=== PATIENT | male | born 1950 | race Two or more races ===

== ENCOUNTER 2016-06-29 13:50 | Inpatient (IN) ==
[2016-06-29] MEDS ORDERED: ONDANSETRON 4 MG/2 ML VIAL IV PRN (13:57)
[2016-06-29] MEDS ORDERED: ACETAMINOPHEN 325 MG TABLET PO PRN (13:57)
--- NOTE | 2016-06-29 15:38 | EKG Report ---
Stationary ECG Study [facility] Test Date: 06/29/2016 3:37:34 PM Pat Name: KANG CARTER Department: Room: 275 Gender: M Girls Swimming Coach: ANNAMARIE : 1950 Requested by: Tima Case Order Number: [id number] Reading MD: LEROY LEO Intervals [place] Rate: 82 P: 78 AR: 132 QRS: 71 QRSD: 100 T: 47 QT: 399 QTc: 438 Interpretive Statements SINUS RHYTHM at 82 bpm LVH with left ventricular overload pattern Electronically Signed On 06-30-16 15:31:41 CDT by LEROY LEO [email or web address]
--- NOTE | 2016-06-29 16:07 | Orthopedic Consult Note ---
History of Present Illness Chief complaint: Left knee pain History of present illness: Mr. Gayle is a 66 year old male with a recent history of septic arthritis of the left knee which was treated in [place]. Upon returning to the [facility], he has been treated with vancomycin 3 times weekly after dialysis. Over the last couple days he developed increased pain and decreased range of motion in the left knee. He denies any constitutional symptoms. By report, he was being treated for MSSA knee infection. Home Medications Medication Instructions Recorded Confirmed Type Allopurinol 100 mg PO DAILY 05/30/15 06/29/16 History Amlodipine Besylate 10 mg PO BEDTIME 05/30/15 06/29/16 History Famotidine 20 mg PO DAILY 05/30/15 06/29/16 History levETIRAcetam [Levetiracetam] 500 mg PO DAILY 05/30/15 06/29/16 History Alum/Mag/Simeth Max Str Liquid 30 ml PO Q6H PRN #0 udcup 06/11/15 06/29/16 Rx [Mylanta Max Strength Liquid] hydrALAZINE TAB [Apresoline Tab] 100 mg PO TID #90 tablet 06/11/15 06/29/16 Rx guaiFENesin ER TAB [Mucinex] 600 mg PO BID tablet 08/14/15 06/29/16 Rx Acetaminophen Tab [Tylenol Tab] 650 mg PO Q6H PRN #0 tablet 09/24/15 06/29/16 Rx Nebivolol [Bystolic] 10 mg PO DAILY #30 tablet 09/24/15 06/29/16 Rx cloNIDine TAB [Catapres Tab] 0.2 mg PO TID #90 tablet 09/24/15 06/29/16 Rx Allergies Allergy/AdvReac Type Severity Reaction Status Date / Time Penicillins Allergy Severe RASH Verified 08/10/15 15:18 Sulfa (Sulfonamide Allergy Unknown RASH Verified 08/10/15 15:18 Antibiotics) 12 point system: reviewed and no additional remarkable complaints except as stated Medical,Surgical,& Family Hx - Medical History Cardio: History of: CHF (the patient has a history of heart failure with preserved ejection fraction), Hypertension Neurology: History of: TIA (2012) No history of: Seizures Respiratory: History of: Intubation Renal: History of: Dialysis (T/R/S), Renal Problems (dr guzmán, nephrology) - Surgical History Cardiac Surgeries: Sugical HX of: Cardiac Catheterization (no epicardial stenosis in May 2015 mildly elevated LVEDP) - Family History Family History: Reports;: Family Heart Disease, Family Hypertension - Social History Smoking Status: Never smoker Frequency of Alcohol Use: None Type of Drug Use: None Exam - Constitutional Vitals: Period Temp Pulse Resp BP Sys/Miller Pulse Ox Last 24 Hr 98.9 F 81 18 184/70 91 Exam: Examination of the left knee today shows extremely restricted range of motion from 20 to about 70. He has minimal effusion. He has a healed incision on anterior aspect of the knee with some small eschars. There is no warmth. No erythema. He has some edema in the leg below the knee. He has pain with any attempted range of motion. Results - Labs CBC & BMP: 06/29/16 16:29 06/29/16 16:29 - Diagnostic Findings Procedure: X-ray: image reviewed by me (Radiographs of the left knee show degenerative changes and some osteopenia) Assessment and Plan (1) Left knee pain Status: Acute Assessment and plan: Currently he does not appear to have septic arthritis by clinical exam. We performed aspiration at the bedside and got about 10 cc of thin, bloody fluid. I would recommend continue physical therapy and vancomycin at this point. We will follow-up the results tomorrow Patient may need MRI of left knee to see if there is any signs of osteomyelitis need to be treated with antibiotics for a longer length of time. Procedure: Under aseptic conditions superolateral aspect left knee is anesthetized 1% lidocaine. Approximately 10 cc of thin, bloody fluid was aspirated. Patient tolerated the procedure well and had no immediate complications. Current Visit: Yes Qualifiers: Chronicity: chronic Qualified Code(s): M25.562 - Pain in left knee; G89.29 - Other chronic pain
[2016-06-29 17:02] LABS: Basophils # 0.1 10*3/uL (0.0-0.2); Eosinophils % 14.9 % (0.00-10.9); Hematocrit 30.2 VOL% (42.0-52.0); Hemoglobin 9.5 GM/DL (14.0-18.0); Immature Granulocytes % 0.2 %; Immature Granulocytes Absolute 0.03 #; Lymphocytes # 3.4 10*3/uL (1.4-4.0); Lymphocytes % 24.7 % (21.2-54.2); Mean Corpuscular HGB Conc 31.5 GM/DL (32-36); Mean Corpuscular Hemoglobin 27 PG (27-34); Mean Corpuscular Volume 86.8 FL (87-102); Monocytes # 0.7 10*3/uL (0.11-0.8); Monocytes % 5.3 % (1.7-12.7); Neutrophils # 7.4 10*3/uL (1.4-7.4); Neutrophils % 53.9 % (38.7-73.9); Platelet Count 290 T/CUMM (130-400); Red Blood Count 3.48 MC/CUMM (3.8-5.5); Red Cell Distribution Width 17.8 % (9.3-17.3); White Blood Count 13.7 T/CUMM (4-12)
[2016-06-29 17:18] LABS: Albumin 3.3 G/DL (3.4-5.0); Bilirubin,Total 0.5 MG/DL (0.2-1.0); Calcium 8.5 MG/DL (8.5-10.1); Osmolality,Calculated 296.4 MOS/KG (273-304); Potassium 4.8 MMOL/L (3.5-5.1); Total Protein 8.7 G/DL (6.4-8.3)
[2016-06-29] MEDS ORDERED: LIDOCAINE 1% 50 ML VIAL MISC INJ ONE (17:54)
--- NOTE | 2016-06-29 18:31 | Family Practice History&Phys ---
Assessment and Plan (1) Left knee pain Status: Acute Assessment and plan: 06/29/2016: Dr. Chua's been consulted and I believe will do an arthrocentesis. Patient is already receiving IV vancomycin after dialysis. Will check a uric acid level. I note the patient's CRP is slightly elevated but his sed rate is 112. Current Visit: Yes (2) Chronic renal failure Status: Acute Assessment and plan: 06/29/2016: Dr. Farhad Guzmán has been consulted. Current Visit: Yes History of Present Illness Chief complaint: Left knee pain History of present illness: Mr. Gayle is a 66 year old male Patient is a 66-year-old gentleman who presented to the office on day of admission with increasing left knee pain, swelling and restriction of motion. Patient has a fairly recent history of septic arthritis in the left knee and had surgery on 2 different occasions in [facility] where he was visiting family. Patient's cultures showed MSSA and he was treated with an oral quinolone which is not available for use here in [place]. Patient states when he returned to [facility] Dr. Guzmán continued antibiotics in the form of vancomycin which he received after each dialysis. Patient states his knee seems to be getting worse and he has noted some restriction of motion. Patient has had no fever or chills. Patient did develop a blistering rash on the lateral aspect of his right ankle. Patient denies this being painful. He has no such rash anywhere else. I note that the patient's CRP was slightly elevated on today's laboratory but his sedimentation rate was 112. He is noted to have increased eosinophils on his CBC today. Home Medications Medication Instructions Recorded Confirmed Type Allopurinol 100 mg PO DAILY 05/30/15 06/29/16 History Amlodipine Besylate 10 mg PO BEDTIME 05/30/15 06/29/16 History Famotidine 20 mg PO DAILY 05/30/15 06/29/16 History levETIRAcetam [Levetiracetam] 500 mg PO DAILY 05/30/15 06/29/16 History Alum/Mag/Simeth Max Str Liquid 30 ml PO Q6H PRN #0 udcup 06/11/15 06/29/16 Rx [Mylanta Max Strength Liquid] hydrALAZINE TAB [Apresoline Tab] 100 mg PO TID #90 tablet 06/11/15 06/29/16 Rx guaiFENesin ER TAB [Mucinex] 600 mg PO BID tablet 08/14/15 06/29/16 Rx Acetaminophen Tab [Tylenol Tab] 650 mg PO Q6H PRN #0 tablet 09/24/15 06/29/16 Rx Nebivolol [Bystolic] 10 mg PO DAILY #30 tablet 09/24/15 06/29/16 Rx cloNIDine TAB [Catapres Tab] 0.2 mg PO TID #90 tablet 09/24/15 06/29/16 Rx Allergies Allergy/AdvReac Type Severity Reaction Status Date / Time Penicillins Allergy Severe RASH Verified 08/10/15 15:18 Sulfa (Sulfonamide Allergy Unknown RASH Verified 08/10/15 15:18 Antibiotics) - Constitutional Constitutional: Present: fatigue, weakness. Absent: chills, fever(s) - EENT Eyes: Absent: blurry vision, loss of vision Ears: Absent: decreased hearing, ear pain Nose, mouth and throat: Absent: dysphagia, nasal congestion, sinus pressure, throat swelling - Cardiovascular Cardiovascular: Present: dyspnea, dyspnea on exertion. Absent: chest pain at rest, diaphoresis, orthopnea, palpitations, PND - Respiratory Respiratory: Present: dyspnea, dyspnea on exertion. Absent: cough, wheezing - Gastrointestinal Gastrointestinal: Absent: abdominal pain, cramping, diarrhea, hematochezia, melena, nausea, vomiting - Genitourinary Genitourinary: Absent: dysuria, hematuria - Musculoskeletal Musculoskeletal: Absent: arthralgias, back pain - Neurological Neurological: Absent: confusion, focal weakness, numbness, paresthesias - Psychiatric Psychiatric: Absent: confusion, depression - Endocrine Endocrine: Present: fatigue. Absent: polydipsia, polyphagia - Hematologic/Lymphatic Hematologic/Lymphatic: Absent: easy bleeding, easy bruising Medical,Surgical,& Family Hx - Medical History Cardio: History of: CHF (the patient has a history of heart failure with preserved ejection fraction), Hypertension Neurology: History of: TIA (2012) No history of: Seizures Respiratory: History of: Intubation Renal: History of: Dialysis (T/R/S), Renal Problems (dr guzmán, nephrology) - Surgical History Cardiac Surgeries: Sugical HX of: Cardiac Catheterization (no epicardial stenosis in May 2015 mildly elevated LVEDP) - Family History Family History: Reports;: Family Heart Disease, Family Hypertension - Social History Smoking Status: Never smoker Frequency of Alcohol Use: None Type of Drug Use: None Exam - Constitutional Vitals: Period Temp Pulse Resp BP Sys/Miller Pulse Ox Last 24 Hr 98.1 F-98.9 F 81-84 16-18 184-203/70-93 91-98 Exam: General: Objective patient is a well-developed gentleman in no acute distress. Patient is admittedly disgusted by having to go back to the hospital. His hospitalization in [facility] was over a month. HEENT: Pupils equal and reactive to light. Patent nares and airway Neck: No meningismus, adenopathy, thyromegaly. There are no auscultated carotid bruits. Cardiovascular: Irregular rhythm. No murmurs or gallops Chest: Clear to auscultation without rales rhonchi wheezes. Patient is noted to have decreased breath sounds on left base Abdomen: Soft nontender to palpation No masses, rebound, guarding or tenderness. Neuro: Cranial nerves intact and DTRs and strength symmetric in all extremities. Dermatologic: Patient's noted to have vesicles on the lateral aspect of right ankle. There is no surrounding erythema. Musculoskeletal: There is diffuse swelling of the left knee. He has a small effusion palpable. Extremities: There is 2+ pitting pretibial edema bilaterally. Results - Labs CBC & BMP: 06/29/16 16:29 06/29/16 16:29 Lab Results: I have reviewed the past 24 hour labs
[2016-06-29 18:38] LABS: Eosinophils 10 % (0-10); Hypochromasia Slight; Lymphocytes 19 % (20-55); Platelet Estimate Normal; Segmented Neutrophils 68 % (50-85); Total Cells Counted 100
[2016-06-29 19:10] LABS: Total Protein 8.7 G/DL (6.4-8.3); Uric Acid 3.4 MG/DL (3.5-7.2)
[2016-06-29 19:16] LABS: Troponin I Only 0.068 NG/ML (0.00-0.045)
--- NOTE | 2016-06-29 19:30 | XRay Report ---
Exam: XR chest 2V Date: 06/29/2016 1:59 PM Indication: Shortness of breath. Comparison: 12/12/2015 Technical: PA lateral Findings: Cardiomegaly is present. Bilateral pleural effusions and atelectatic change present left greater than right with fluid in the fissures the minor fissure and major fissure. No pneumothorax. External cardiac leads are present. Arthritic change present along the thoracic spine with anterolateral marginal osteophytes.. No pneumothorax. Impression: 1. Cardiomegaly with worsening effusions atelectatic change in both bases. This could represent a component of CHF. Pneumonic infiltrates cannot be totally excluded particularly in the left base PROCEDURE INTERPRETED AT [facility] DEPARTMENT OF RADIOLOGY Final Report Signed by: Dr. Hilton Hurd
--- NOTE | 2016-06-29 19:32 | XRay Report ---
Exam: XR knee 2V LT Date: 06/29/2016 2:00 PM Indication: Left knee pain Comparison: None Technical: AP lateral Findings: Large joint effusion hemarthrosis present. Arthritic changes are present along the posterior aspect of the patella was perforation superiorly and inferiorly and narrowing of the patellofemoral joint space. Small erosion along the medial femoral condyle. There is slight medial joint space narrowing also present. No fractures present within the tibia fibula femur or patella Impression: 1. Joint effusion, moderate suspected 2. Tricompartment degenerative osteoarthritis most prominent on the medial and patellofemoral joint space with small erosions. 3. No obvious fracture or dislocation. PROCEDURE INTERPRETED AT [facility] DEPARTMENT OF RADIOLOGY Final Report Signed by: Dr. Hilton Hurd
[2016-06-29 20:25] LABS: Cholesterol Crystals None Seen /LPF
[2016-06-29 21:13] LABS: Lymphocytes,Synovial Fluid 11 %; Neutrophils,Synovial Fluid 85 %
[2016-06-29 22:20] LABS: Troponin I Only 0.062 NG/ML (0.00-0.045)
[2016-06-29] MEDS: DOCUSATE SODIUM 100 MG CAPSULE PO SCH (22:59)
[2016-06-29] MEDS: methylPREDNISolone SOD SUC 40 MG/1 ML VIAL IV SCH (23:01)
[2016-06-30 02:33] LABS: Troponin I Only 0.062 NG/ML (0.00-0.045)
[2016-06-30] MEDS: methylPREDNISolone SOD SUC 40 MG/1 ML VIAL IV SCH ×2 (05:58→17:40)
[2016-06-30 06:13] LABS: Troponin I Only 0.057 NG/ML (0.00-0.045)
--- NOTE | 2016-06-30 07:17 | Family Practice Progress Note ---
Family Practice - PN: Subj Interval history: Patient states he is feeling some better this morning. His arthrocentesis showed red blood cells and a little over 2000 white blood cells. Crystal analysis was negative. I reassured him that this problem did not indicate septic arthritis though he has been undergoing persistent treatment with IV vancomycin. The cultures will be a final arbiter of that diagnosis. Placed on low-dose Solu-Medrol and he states he is feeling much better this morning. Told him I am going to ask pulmonary to see him concerning his persistent left pleural effusion. Exam (Progress Note) - Constitutional Vitals: Period Temp Pulse Resp BP Sys/Miller Pulse Ox Last 24 Hr 97.9 F-98.9 F 73-88 16-20 160-203/66-93 91-98 Exam: Objective well-developed [place] gentleman whose able give good history. He states he feels much more comfortable this morning. Cardiovascular: Heart rates regular without murmurs or gallops. Respiratory: Patient has decreased breath sounds on the left. Abdomen: Abdomen soft and nontender to palpation. Results - Labs CBC & BMP: 06/29/16 16:29 06/29/16 16:29 Lab Results: I have reviewed the past 24 hour labs - EKG EKG results: sinus rhythm (82 bpm), no acute changes - Diagnostic Findings Procedure: Chest x-ray: report reviewed by me (Patient has persistent left pleural effusion.) Assessment and Plan (1) Left knee pain Status: Acute Assessment and plan: 06/29/2016: Dr. Chua's been consulted and I believe will do an arthrocentesis. Patient is already receiving IV vancomycin after dialysis. Will check a uric acid level. I note the patient's CRP is slightly elevated but his sed rate is 112. 06/30/2016: This clinically does not appear to be septic arthritis. Culture of the arthrocentesis fluid is pending. Current Visit: Yes Qualifiers: Chronicity: chronic Qualified Code(s): M25.562 - Pain in left knee; G89.29 - Other chronic pain (2) Chronic renal failure Status: Acute Assessment and plan: 06/29/2016: Dr. Farhad Deng has been consulted. 06/30/2016: Patient scheduled for dialysis today. Current Visit: Yes
--- NOTE | 2016-06-30 07:51 | Pulmonology Consult Note ---
Assessment and Plan (1) Chronic renal failure Status: Acute Assessment and plan: Due for dialysis today. Need to recheck x-ray following dialysis as I suspect the effusion will be much improved with that. Current Visit: Yes (2) Left knee pain Status: Acute Assessment and plan: Has had a needle aspiration of left knee joint. Await cultures. Current Visit: Yes Qualifiers: Chronicity: chronic Qualified Code(s): M25.562 - Pain in left knee; G89.29 - Other chronic pain (3) Congestive heart failure Status: Acute Assessment and plan: Previously evaluated as diastolic dysfunction. Had an elevated LVEDP with previous catheterization. This tends to get exacerbated with fluid overload between dialysis. Current Visit: No (4) Bilateral pleural effusion Status: Chronic Assessment and plan: Large effusion on the left than the right. Pulling up his old x-rays this has been the case every time. He tends to lie on his left side at night. I think the effusions are due to fluid overload related to his renal failure. Current Visit: No History of Present Illness Chief complaint: Left pleural effusion History of present illness: Mr. Gayle is a 66 year old male who has end-stage renal disease. I have seen him several times in the past because of pleural effusions. They always seem to accumulate on the left side. We have tapped him before and the fluid was transudative. He lies on his left side when he is flat in the bed. His last dialysis was 3 days ago. I think he is just ahead on fluids and needs dialysis again. He has had a chronic infection of his left knee. He has not had any fever or chills. He does have a slightly elevated white blood count of 13,000. He also has a small right pleural effusion. He does have some dyspnea on exertion but no more than usual. He does have some leg edema. Previous evaluation has shown that he has diastolic dysfunction as a cause of mild congestive heart failure. Home Medications Medication Instructions Recorded Confirmed Type Allopurinol 100 mg PO DAILY 05/30/15 06/29/16 History Amlodipine Besylate 10 mg PO BEDTIME 05/30/15 06/29/16 History Famotidine 20 mg PO DAILY 05/30/15 06/29/16 History levETIRAcetam [Levetiracetam] 500 mg PO DAILY 03/03/16 04/03/17 History Alum/Mag/Simeth Max Str Liquid 30 ml PO Q6H PRN #0 udcup 06/11/15 06/29/16 Rx [Mylanta Max Strength Liquid] hydrALAZINE TAB [Apresoline Tab] 100 mg PO TID #90 tablet 06/11/15 06/29/16 Rx guaiFENesin ER TAB [Mucinex] 600 mg PO BID tablet 08/14/15 06/29/16 Rx Acetaminophen Tab [Tylenol Tab] 650 mg PO Q6H PRN #0 tablet 09/24/15 06/29/16 Rx Nebivolol [Bystolic] 10 mg PO DAILY #30 tablet 09/24/15 06/29/16 Rx cloNIDine TAB [Catapres Tab] 0.2 mg PO TID #90 tablet 09/24/15 06/29/16 Rx Allergies Allergy/AdvReac Type Severity Reaction Status Date / Time Penicillins Allergy Severe RASH Verified 08/10/15 15:18 Sulfa (Sulfonamide Allergy Unknown RASH Verified 08/10/15 15:18 Antibiotics) - Constitutional Constitutional: Present: weight gain - Cardiovascular Cardiovascular: Present: dyspnea, dyspnea on exertion, edema - Respiratory Respiratory: Present: dyspnea, dyspnea on exertion Exam (Pulmonay) H&P - Constitutional Vitals: Period Temp Pulse Resp BP Sys/Miller Pulse Ox Last 24 Hr 97.9 F-98.9 F 73-88 16-20 160-203/66-93 91-98 Exam: Vital signs normal except blood pressure 160/68. Pupils react to light throat is clear. Neck is supple. He does have some jugular venous distention. Chest shows some basilar rales dullness at the left base. Heart normal rate and rhythm no murmurs. Abdomen soft nontender no masses. Bowel sounds present. Extremities he has edema in his legs slightly more on the left side than the right. He has some chronic edema in the right arm from previous venous obstruction. He has an AV fistula on the left arm where he gets his dialysis. Medical,Surgical,& Family Hx - Medical History Cardio: History of: CHF (the patient has a history of heart failure with preserved ejection fraction), Hypertension Neurology: History of: TIA (2012) No history of: Seizures Respiratory: History of: Intubation Renal: History of: Dialysis (T/R/S), Renal Problems (dr guzmán, nephrology) - Surgical History Cardiac Surgeries: Sugical HX of: Cardiac Catheterization (no epicardial stenosis in May 2015 mildly elevated LVEDP) - Family History Family History: Reports;: Family Heart Disease, Family Hypertension - Social History Smoking Status: Never smoker Frequency of Alcohol Use: None Type of Drug Use: None Results - Labs CBC & BMP: 06/29/16 16:29 06/29/16 16:29 Lab Results: I have reviewed the past 24 hour labs - Diagnostic Findings Procedure: Chest x-ray: image reviewed by me (Bilateral effusions larger on the left than the right.)
--- NOTE | 2016-06-30 08:31 | Orthopedic Progress Note ---
Assessment and Plan (1) Left knee pain Status: Acute Assessment and plan: Cell count not indicative of active infection. will f/u Cx rec to continue current Abx regimen continue PT, full ROM, WBAT Current Visit: Yes Qualifiers: Chronicity: chronic Qualified Code(s): M25.562 - Pain in left knee; G89.29 - Other chronic pain Orthopedics - Subjective Interval history: Pt states his knee is "feeling better" Exam: pt has more active and passive flexion with less pain this am Gram stain - Cx P Exam - Constitutional Vitals: Period Temp Pulse Resp BP Sys/Miller Pulse Ox Last 24 Hr 97 F-98.9 F 73-90 16-20 160-203/66-93 91-100 Results - Labs CBC & BMP: 06/29/16 16:29 06/29/16 16:29
--- NOTE | 2016-06-30 09:32 | EKG Report ---
Please refer to the EKG image. Final interpretation is pending.
[2016-06-30] MEDS: DOCUSATE SODIUM 100 MG CAPSULE PO SCH ×2 (09:38→21:24)
[2016-06-30] MEDS: PANTOPRAZOLE 40 MG TABLET PO SCH (09:38)
--- NOTE | 2016-06-30 09:38 | EKG Report ---
Please refer to the EKG image. Final interpretation is pending.
[2016-06-30 09:56] LABS: Albumin (SPE) Rel % 46.3 %; Alpha 1 (SPE) 0.3 G/DL (0.1-0.4); Alpha 1 (SPE) Rel % 3.6 %; Alpha 2 (SPE) 0.8 G/DL (0.4-1.0); Alpha 2 (SPE) Rel % 9.7 %; Beta (SPE) 0.7 G/DL (0.5-1.1); Beta (SPE) Rel % 8.5 %; Gamma (SPE) 2.8 G/DL (0.7-1.7); Gamma (SPE) Rel % 31.9 %; Total Protein (Chem) 8.7 G/DL (6.4-8.2)
[2016-06-30] MEDS ORDERED: ALUMINUM/MAGNES/SIMETH MAX STR 30 ML UDCUP PO PRN (13:30)
[2016-06-30] MEDS: VANCOMYCIN INJ 1,000 MG in SODIUM CHLORIDE 0.9% 250 ML IV SCH (17:43)
--- NOTE | 2016-06-30 17:55 | XRay Report ---
Exam: XR chest 2V Date: 06/30/2016 7:54 AM Indication: Pleural effusion Comparison: 06/29/2016 Technical: PA lateral Findings: Cardiomegaly is present with persistent bibasilar atelectatic change and effusions left greater than right. Fluid is present along the major fissure. External cardiac leads are present. Oxygen tubing is present. Lateral marginal osteophytes are present. Impression: 1. Cardiomegaly with the improving aeration with decreased effusion right base with persistent effusion left base and underlying atelectatic change bilaterally. PROCEDURE INTERPRETED AT [facility] DEPARTMENT OF RADIOLOGY Final Report Signed by: Dr. Hilton Hurd
[2016-06-30] MEDS: amLODIPine 10 MG TABLET PO SCH (21:24)
--- NOTE | 2016-06-30 22:01 | Nephrology Consult Note ---
History of Present Illness Chief complaint: ESRD, knee pain History of present illness: Mr. Gayle is a 66 year old male who was treated in his [facility] [place] for septic arthritis of the left knee. He underwent surgical debridement and was treated with IV antibiotics. Culture grew MRSA. He was treated for a total of 6 weeks with IV antibiotics; the last 3 weeks have been here with IV vancomycin. He presented with increased pain and swelling in his left knee. He's had no fever or chills. He also reports GUTIÉRREZ with a nonproductive cough. Home Medications Medication Instructions Recorded Confirmed Type Allopurinol 100 mg PO DAILY 05/30/15 06/29/16 History Amlodipine Besylate 10 mg PO BEDTIME 05/30/15 06/29/16 History Famotidine 20 mg PO DAILY 05/30/15 06/29/16 History levETIRAcetam [Levetiracetam] 500 mg PO DAILY 05/30/15 06/29/16 History Alum/Mag/Simeth Max Str Liquid 30 ml PO Q6H PRN #0 udcup 06/11/15 06/29/16 Rx [Mylanta Max Strength Liquid] hydrALAZINE TAB [Apresoline Tab] 100 mg PO TID #90 tablet 06/11/15 06/29/16 Rx guaiFENesin ER TAB [Mucinex] 600 mg PO BID tablet 08/14/15 06/29/16 Rx Acetaminophen Tab [Tylenol Tab] 650 mg PO Q6H PRN #0 tablet 09/24/15 06/29/16 Rx Nebivolol [Bystolic] 10 mg PO DAILY #30 tablet 09/24/15 06/29/16 Rx cloNIDine TAB [Catapres Tab] 0.2 mg PO TID #90 tablet 09/24/15 06/29/16 Rx Allergies Allergy/AdvReac Type Severity Reaction Status Date / Time Penicillins Allergy Severe RASH Verified 08/10/15 15:18 Sulfa (Sulfonamide Allergy Unknown RASH Verified 08/10/15 15:18 Antibiotics) Medical,Surgical,& Family Hx - Medical History Cardio: History of: CHF (the patient has a history of heart failure with preserved ejection fraction), Hypertension Neurology: History of: TIA (2012) No history of: Seizures Respiratory: History of: Intubation Renal: History of: Dialysis (T/R/S), Renal Problems (dr guzmán, nephrology) - Surgical History Cardiac Surgeries: Sugical HX of: Cardiac Catheterization (no epicardial stenosis in May 2015 mildly elevated LVEDP) - Family History Family History: Reports;: Family Heart Disease, Family Hypertension - Social History Smoking Status: Never smoker Frequency of Alcohol Use: None Type of Drug Use: None Review of Systems 12 point system: reviewed and no additional remarkable complaints except as stated Exam - Vital Signs Vital signs: Period Temp Pulse Resp BP Sys/Miller Pulse Ox Last 24 Hr 97 F-98.4 F 74-90 18-20 158-201/61-89 96-100 Exam: Gen.: Alert and oriented x3. ENT: Pupils equal round reactive to light. EOMs intact. Mucous membranes moist. Neck: Supple. No JVD or bruit. Cardiovascular: Regular rate and rhythm. No murmur rub or gallop Lungs: Clear Abdomen: Soft. Nontender. Positive bowel sounds. No organomegaly Extremities: 1+ lower extremity edema. Small effusion left knee. Surgical incision left knee without erythema or drainage Results - Labs CBC & BMP: 06/29/16 16:29 06/29/16 16:29 Assessment and Plan (1) ESRD (end stage renal disease) Status: Chronic Assessment and plan: 66-year-old man admitted with: * Left knee pain. Recently treated for MRSA septic arthritis. Orthopedics has aspirated the knee and it does not appear to be grossly infected. Culture pending. Continue vancomycin postdialysis * ESRD. He is seen during dialysis today. Blood pressure is stable. His access is working well * Hypertension. Medications will be adjusted * Pleural effusions. These are recurrent. Dry weight will be decreased as tolerated; however it may not decrease his effusions as they are third spaced * Diabetes mellitus Current Visit: No (2) Left knee pain Status: Acute Current Visit: Yes Qualifiers: Chronicity: chronic Qualified Code(s): M25.562 - Pain in left knee; G89.29 - Other chronic pain (3) Bilateral pleural effusion Status: Chronic Current Visit: No (4) Chronic hypertension Status: Chronic Current Visit: No (5) Seizure disorder Status: Chronic Current Visit: No (6) Type 2 diabetes mellitus Status: Chronic Current Visit: No
[2016-06-30] MEDS ORDERED: cloNIDine 0.1 MG TABLET PO ONE (23:57)
[2016-07-01] MEDS: methylPREDNISolone SOD SUC 40 MG/1 ML VIAL IV SCH ×2 (06:58→17:55)
--- NOTE | 2016-07-01 07:30 | Family Practice Progress Note ---
Family Practice - PN: Subj Interval history: Patient states he is feeling much better. His left knee is less and less painful as well. Cultures of his synovial fluid this far been negative. He was seen in consultation by Dr. Mccormack he did not think a pleurocentesis was indicated at this time. Patient still having some systolic hypertension. Exam (Progress Note) - Constitutional Vitals: Period Temp Pulse Resp BP Sys/Miller Pulse Ox Last 24 Hr 97 F-98.6 F 82-90 2-20 158-204/61-89 96-100 Exam: Objective well-developed gentleman whose able give good history. He states he feels much more comfortable this morning. Cardiovascular: Heart rates regular without murmurs or gallops. Respiratory: Patient has decreased breath sounds on the left. Abdomen: Abdomen soft and nontender to palpation. Results - Labs CBC & BMP: 06/29/16 16:29 06/29/16 16:29 Lab Results: I have reviewed the past 24 hour labs Assessment and Plan (1) Left knee pain Status: Acute Assessment and plan: 06/29/2016: Dr. Chua's been consulted and I believe will do an arthrocentesis. Patient is already receiving IV vancomycin after dialysis. Will check a uric acid level. I note the patient's CRP is slightly elevated but his sed rate is 112. 06/30/2016: This clinically does not appear to be septic arthritis. Culture of the arthrocentesis fluid is pending. 07/01/2016: Left knee is feeling better and certainly looks better. Current Visit: Yes Qualifiers: Chronicity: chronic Qualified Code(s): M25.562 - Pain in left knee; G89.29 - Other chronic pain (2) Chronic renal failure Status: Acute Assessment and plan: 06/29/2016: Dr. Farhad Deng has been consulted. 06/30/2016: Patient scheduled for dialysis today. 07/01/2016: Patient had no difficulty with dialysis yesterday. Current Visit: Yes
--- NOTE | 2016-07-01 07:51 | Pulmonology Progress Note ---
Pulmonary - PN: Subj Interval history: This 66-year-old gentleman has end-stage renal disease. He has a chronic left pleural effusion. It was transudate if when tapped last year. Virtually every chest x-ray he has had since August of last year has shown some left pleural fluid. He came in with bilateral effusions which are better post dialysis however he does have a persistent small left pleural effusion. He is not febrile. He does have some dyspnea on exertion. Agree with nephrology that it would probably be best to adjust his dry weight downward. Nothing further to add from a pulmonary standpoint. Please call if needed further Exam (Progress Note) - Constitutional Vitals: Period Temp Pulse Resp BP Sys/Miller Pulse Ox Last 24 Hr 97 F-98.6 F 82-90 2-20 158-204/61-89 96-100 Exam: Patient's alert oriented vital signs normal. Pupils react to light. Throat is clear. Neck supple no bruits. Chest reveals some dullness of the left base otherwise clear lungs. Heart normal rate and rhythm no murmurs. Abdomen soft no masses. Extremities no clubbing cyanosis edema. Calves nontender. Results - Labs CBC & BMP: 06/29/16 16:29 06/29/16 16:29 Lab Results: I have reviewed the past 24 hour labs - Diagnostic Findings Procedure: Chest x-ray: image reviewed by me (Chest x-ray post dialysis shows resolution of the small right pleural effusion, and the left effusion is smaller.) Assessment and Plan (1) Chronic renal failure Status: Acute Assessment and plan: Due for dialysis today. Need to recheck x-ray following dialysis as I suspect the effusion will be much improved with that. 07/01/2016 continuing dialysis per usual routine but setting dry weight a little lower. Defer to nephrology. Current Visit: Yes (2) Left knee pain Status: Acute Assessment and plan: Has had a needle aspiration of left knee joint. Await cultures. 07/01/2016 cultures negative thus far. Current Visit: Yes Qualifiers: Chronicity: chronic Qualified Code(s): M25.562 - Pain in left knee; G89.29 - Other chronic pain (3) Congestive heart failure Status: Acute Assessment and plan: Previously evaluated as diastolic dysfunction. Had an elevated LVEDP with previous catheterization. This tends to get exacerbated with fluid overload between dialysis. 07/01/2016 believe that his pleural effusions are related to renal failure with fluid overload and diastolic dysfunction. Current Visit: No (4) Bilateral pleural effusion Status: Chronic Assessment and plan: Larger effusion on the left than the right. Pulling up his old x-rays this has been the case every time. He tends to lie on his left side at night. I think the effusions are due to fluid overload related to his renal failure. 07/01/2016 right effusion has resolved. Left effusion is small. Current Visit: No
[2016-07-01] MEDS: FAMOTIDINE 20 MG TABLET PO SCH (08:22)
[2016-07-01] MEDS: PANTOPRAZOLE 40 MG TABLET PO SCH (08:22)
[2016-07-01] MEDS: levETIRAcetam 500 MG TABLET PO SCH (08:22)
[2016-07-01] MEDS: NEBIVOLOL 10 MG TABLET PO SCH (08:22)
[2016-07-01] MEDS: ALLOPURINOL 100 MG TABLET PO SCH (08:22)
[2016-07-01] MEDS: DOCUSATE SODIUM 100 MG CAPSULE PO SCH ×2 (10:09→21:35)
[2016-07-01 14:36] LABS: Myeloperoxidase Antibody < 0.2 U
--- NOTE | 2016-07-01 17:26 | Orthopedic Progress Note ---
Assessment and Plan (1) Left knee pain Status: Acute Assessment and plan: New Cx results growing G+ cocci. I discussed this with the son at the bedside this afternoon. I have recommended repeat open I&D of the knee tomorrow prior to HD if labs are acceptable. Current Visit: Yes Qualifiers: Chronicity: chronic Qualified Code(s): M25.562 - Pain in left knee; G89.29 - Other chronic pain Orthopedics - Subjective Interval history: Son states pt has had less pain today exam unchanged Cx - G+ cocci Exam - Constitutional Vitals: Period Temp Pulse Resp BP Sys/Miller Pulse Ox Last 24 Hr 97.7 F-98.6 F 69-88 2-20 176-204/73-86 98-100 Results - Labs CBC & BMP: 06/29/16 16:29 06/29/16 16:29
[2016-07-01] MEDS: amLODIPine 10 MG TABLET PO SCH (21:35)
--- NOTE | 2016-07-01 22:08 | Nephrology Progress Note ---
Nephrology - PN: Subj Interval history: He feels better overall today. Less pain in his knee. Shortness of breath has improved Exam (PN)-Nephrology - Vital Signs Vital signs: Period Temp Pulse Resp BP Sys/Miller Pulse Ox Last 24 Hr 97.7 F-98.6 F 69-85 2-20 176-204/78-89 95-100 Exam: ENT: Normal Cardiovascular: Regular rate and rhythm. No murmur rub or gallop Lungs: Clear Extremities: Trace edema - Lab 06/29/16 16:29 06/29/16 16:29 Most recent lab results Calcium 8.5 MG/DL (8.5-10.1) 06/29/16 16:29 Assessment and Plan (1) ESRD (end stage renal disease) Status: Chronic Assessment and plan: 66-year-old man admitted with: * Left knee pain. Arthrocentesis fluid growing gram-positive cocci. Continue vancomycin. Additional treatment per orthopedics * ESRD. Dialysis tomorrow * Hypertension. Medications will be adjusted * Pleural effusions. These are recurrent. Dry weight will be decreased as tolerated * Diabetes mellitus Current Visit: No (2) Left knee pain Status: Acute Current Visit: Yes Qualifiers: Chronicity: chronic Qualified Code(s): M25.562 - Pain in left knee; G89.29 - Other chronic pain (3) Bilateral pleural effusion Status: Chronic Current Visit: No (4) Chronic hypertension Status: Chronic Current Visit: No (5) Seizure disorder Status: Chronic Current Visit: No (6) Type 2 diabetes mellitus Status: Chronic Current Visit: No
[2016-07-02 06:12] LABS: Calcium 8.1 MG/DL (8.5-10.1); Osmolality,Calculated 298.7 MOS/KG (273-304); Potassium 5.8 MMOL/L (3.5-5.1)
[2016-07-02] MEDS: methylPREDNISolone SOD SUC 40 MG/1 ML VIAL IV SCH ×2 (06:18→18:40)
--- NOTE | 2016-07-02 07:59 | Family Practice Progress Note ---
Family Practice - PN: Subj Interval history: Patient states he is feeling much better this morning but I note he has a gram- positive coccus on the culture of his synovial fluid. Probably needs to have this joint flushed out again. He states he is feeling well otherwise and his knee pain is much improved. His blood sugars are elevated and I am going to place him on low-dose Januvia. Exam (Progress Note) - Constitutional Vitals: Period Temp Pulse Resp BP Sys/Miller Pulse Ox Last 24 Hr 97.5 F-98.5 F 67-81 16-20 168-207/71-89 95-100 Exam: Objective well-developed gentleman whose able give good history. He states he feels much more comfortable this morning. Cardiovascular: Heart rates regular without murmurs or gallops. Respiratory: Patient has decreased breath sounds on the left. Abdomen: Abdomen soft and nontender to palpation. Extremities: Left knee is slightly warm to the touch but there is no swelling or increased effusion. Results - Labs CBC & BMP: 06/29/16 16:29 07/02/16 04:59 Lab Results: I have reviewed the past 24 hour labs Assessment and Plan (1) Left knee pain Status: Acute Assessment and plan: 06/29/2016: Dr. Chua's been consulted and I believe will do an arthrocentesis. Patient is already receiving IV vancomycin after dialysis. Will check a uric acid level. I note the patient's CRP is slightly elevated but his sed rate is 112. 06/30/2016: This clinically does not appear to be septic arthritis. Culture of the arthrocentesis fluid is pending. 07/01/2016: Left knee is feeling better and certainly looks better. 08/01/2016: Patient has a positive culture of the synovial fluid. Current Visit: Yes Qualifiers: Chronicity: chronic Qualified Code(s): M25.562 - Pain in left knee; G89.29 - Other chronic pain (2) Chronic renal failure Status: Chronic Assessment and plan: 06/29/2016: Dr. Farhad Deng has been consulted. 06/30/2016: Patient scheduled for dialysis today. 07/01/2016: Patient had no difficulty with dialysis yesterday. 07/02/2016: Patient scheduled for dialysis today. Current Visit: Yes
[2016-07-02] MEDS: FAMOTIDINE 20 MG TABLET PO SCH (08:16)
[2016-07-02] MEDS: levETIRAcetam 500 MG TABLET PO SCH (08:16)
[2016-07-02] MEDS: NEBIVOLOL 10 MG TABLET PO SCH (08:16)
[2016-07-02] MEDS: PANTOPRAZOLE 40 MG TABLET PO SCH (08:16)
[2016-07-02] MEDS: DOCUSATE SODIUM 100 MG CAPSULE PO SCH ×2 (08:17→21:14)
[2016-07-02] MEDS ORDERED: INSULIN REGULAR 100 UNIT/ML SUBCUT ONE (09:24)
[2016-07-02] MEDS ORDERED: INSULIN NPH/REGULAR 70/30 100 UNIT/ML SUBCUT ONE (09:34)
[2016-07-02] MEDS ORDERED: GLUCAGON 1 MG VIAL IM PRN (10:45)
[2016-07-02] MEDS ORDERED: DEXTROSE 50% 25 GM/50 ML VIAL IV PRN (10:45)
[2016-07-02] MEDS ORDERED: SEVOFLURANE 1 UNIT/15 MINUTE INH ONE (10:53)
[2016-07-02] MEDS ORDERED: fentaNYL 100 MCG/2 ML VIAL ONE (10:53)
[2016-07-02] MEDS ORDERED: MIDAZOLAM 2 MG/2 ML VIAL ONE (10:53)
[2016-07-02] MEDS ORDERED: HYDROmorphone 2 MG/1 ML VIAL ONE (11:01)
[2016-07-02] MEDS ORDERED: ONDANSETRON 4 MG/2 ML VIAL ONE (11:01)
[2016-07-02] MEDS ORDERED: ONDANSETRON 4 MG/2 ML VIAL IV PRN (11:03)
[2016-07-02] MEDS ORDERED: HYDROmorphone 2 MG/1 ML VIAL IV PRN (11:03)
[2016-07-02] MEDS ORDERED: ROPIVACAINE 0.5% 30 ML VIAL ONE (11:27)
[2016-07-02] MEDS ORDERED: SODIUM CHLORIDE 0.9% 250 ML IV SCH (11:30)
--- NOTE | 2016-07-02 12:20 | Nephrology Progress Note ---
Nephrology - PN: Subj Interval history: He is seen during dialysis. He has just had incision and drainage of his left knee. He is sedated but arousable. Exam (PN)-Nephrology - Vital Signs Vital signs: Period Temp Pulse Resp BP Sys/Miller Pulse Ox Last 24 Hr 97.2 F-98.2 F 55-75 16-20 165-207/65-103 93-100 Exam: ENT: Normal Cardiovascular: Regular rate and rhythm. No murmur rub or gallop Lungs: Clear Extremities: Trace edema - Lab 06/29/16 16:29 07/02/16 04:59 Most recent lab results Calcium 8.1 MG/DL (8.5-10.1) L 07/02/16 04:59 Assessment and Plan (1) ESRD (end stage renal disease) Status: Chronic Assessment and plan: 66-year-old man admitted with: * Septic left knee. Status post debridement today. Re-dose vancomycin today * ESRD. Stable during dialysis * Hypertension. His son states his pressure was better controlled on nifedipine. Amlodipine will be changed to nifedipine. * Pleural effusions. These are recurrent. Dry weight will be decreased as tolerated * Diabetes mellitus Current Visit: No (2) Left knee pain Status: Acute Current Visit: Yes Qualifiers: Chronicity: chronic Qualified Code(s): M25.562 - Pain in left knee; G89.29 - Other chronic pain (3) Bilateral pleural effusion Status: Chronic Current Visit: No (4) Chronic hypertension Status: Chronic Current Visit: No (5) Seizure disorder Status: Chronic Current Visit: No (6) Type 2 diabetes mellitus Status: Chronic Current Visit: No
[2016-07-02] MEDS: sitaGLIPtin 25 MG TABLET PO SCH (14:49)
[2016-07-02] MEDS: ALLOPURINOL 100 MG TABLET PO SCH (14:49)
--- NOTE | 2016-07-02 15:08 | Anesthesia ---
Anesthesia Post OP - Post Ansesthetic Evaluation Patient seen in post op: Yes Resp: within normal limits CV: within normal limits Mental: within normal limits Temp: within normal limits Rpud-[id number]-Bbsmculaw: within normal limits Nausea and Vomiting: within normal limits Pain: within normal limits
[2016-07-02] MEDS: cloNIDine 0.1 MG TABLET PO PRN ×2 (17:15→21:15)
[2016-07-02] MEDS: VANCOMYCIN INJ 1,000 MG in SODIUM CHLORIDE 0.9% 250 ML IV SCH (18:45)
[2016-07-03] MEDS: cloNIDine 0.1 MG TABLET PO PRN ×2 (00:02→21:05)
[2016-07-03] MEDS: methylPREDNISolone SOD SUC 40 MG/1 ML VIAL IV SCH (07:00)
--- NOTE | 2016-07-03 07:29 | Family Practice Progress Note ---
Family Practice - PN: Subj Interval history: Patient states his left knee is feeling much better. Patient underwent lavage of the knee yesterday by Dr. Chua. His cultures are positive for MRSA which is certainly sensitive to vancomycin. Exam (Progress Note) - Constitutional Vitals: Period Temp Pulse Resp BP Sys/Miller Pulse Ox Last 24 Hr 96.0 F-99.0 F 55-70 16-20 154-210/65-103 93-100 Exam: Objective well-developed gentleman whose able give good history. His left knee is feeling much better. Cardiovascular: Heart rates regular without murmurs or gallops. Respiratory: Patient has decreased breath sounds on the left. Abdomen: Abdomen soft and nontender to palpation. Extremities: Left knee is slightly warm to the touch but there is no swelling or increased effusion. SEVERO drain is in place Results - Labs CBC & BMP: 06/29/16 16:29 07/02/16 04:59 Lab Results: I have reviewed the past 24 hour labs Assessment and Plan (1) Left knee pain Status: Acute Assessment and plan: 06/29/2016: Dr. Chua's been consulted and I believe will do an arthrocentesis. Patient is already receiving IV vancomycin after dialysis. Will check a uric acid level. I note the patient's CRP is slightly elevated but his sed rate is 112. 06/30/2016: This clinically does not appear to be septic arthritis. Culture of the arthrocentesis fluid is pending. 07/01/2016: Left knee is feeling better and certainly looks better. 08/01/2016: Patient has a positive culture of the synovial fluid. 07/03/2016: Patient underwent lavage yesterday without incident. Current Visit: Yes Qualifiers: Chronicity: chronic Qualified Code(s): M25.562 - Pain in left knee; G89.29 - Other chronic pain (2) Chronic renal failure Status: Chronic Assessment and plan: 06/29/2016: Dr. Farhad Deng has been consulted. 06/30/2016: Patient scheduled for dialysis today. 07/01/2016: Patient had no difficulty with dialysis yesterday. 07/02/2016: Patient scheduled for dialysis today. 07/03/2016: Patient scheduled for dialysis tomorrow. Current Visit: Yes
--- NOTE | 2016-07-03 09:41 | Orthopedic Progress Note ---
Assessment and Plan (1) Left knee pain Status: Acute Assessment and plan: Okay to begin physical therapy, weight-bear to tolerance with gentle knee range of motion Continue IV vancomycin for 3 weeks postoperative We will remove drain and change dressings tomorrow morning Current Visit: Yes Qualifiers: Chronicity: chronic Qualified Code(s): M25.562 - Pain in left knee; G89.29 - Other chronic pain Orthopedics - Subjective Interval history: No new complaints. Patient states his knee is feeling better this morning. On exam, his dressings are clean and dry, he is neurovascular intact. There is a mild amount of sanguinous drainage in his SEVERO drain. No purulence is noted. Aspiration cultures are growing MRSA Exam - Constitutional Vitals: Period Temp Pulse Resp BP Sys/Miller Pulse Ox Last 24 Hr 96.0 F-99.0 F 55-88 16-20 154-210/65-103 93-100 Results - Labs CBC & BMP: 06/29/16 16:29 07/02/16 04:59
[2016-07-03] MEDS: NEBIVOLOL 10 MG TABLET PO SCH (10:34)
[2016-07-03] MEDS: sitaGLIPtin 25 MG TABLET PO SCH (10:35)
[2016-07-03] MEDS: DOCUSATE SODIUM 100 MG CAPSULE PO SCH ×2 (10:35→21:05)
[2016-07-03] MEDS: FAMOTIDINE 20 MG TABLET PO SCH (10:35)
[2016-07-03] MEDS: ALLOPURINOL 100 MG TABLET PO SCH (10:36)
[2016-07-03] MEDS: PANTOPRAZOLE 40 MG TABLET PO SCH (10:36)
[2016-07-03] MEDS: levETIRAcetam 500 MG TABLET PO SCH (10:39)
--- NOTE | 2016-07-03 15:56 | Nephrology Progress Note ---
Nephrology - PN: Subj Interval history: Knee pain has decreased. He denies shortness of breath. No GI symptoms Exam (PN)-Nephrology - Vital Signs Vital signs: Period Temp Pulse Resp BP Sys/Miller Pulse Ox Last 24 Hr 96.0 F-99.0 F 65-88 18-18 154-210/66-92 94-99 Exam: ENT: Normal Cardiovascular: Regular rate and rhythm. No murmur rub or gallop Lungs: Clear Extremities: Trace edema left leg - Lab 06/29/16 16:29 07/02/16 04:59 Most recent lab results Calcium 8.1 MG/DL (8.5-10.1) L 07/02/16 04:59 Assessment and Plan (1) ESRD (end stage renal disease) Status: Chronic Assessment and plan: 66-year-old man admitted with: * Septic left knee. Status post debridement. Continue vancomycin every HD * ESRD. Dialysis TTS * Hypertension. Nifedipine will be increased * Pleural effusions. These are recurrent. Dry weight will be decreased as tolerated * Diabetes mellitus Current Visit: No (2) Left knee pain Status: Acute Current Visit: Yes Qualifiers: Chronicity: chronic Qualified Code(s): M25.562 - Pain in left knee; G89.29 - Other chronic pain (3) Bilateral pleural effusion Status: Chronic Current Visit: No (4) Chronic hypertension Status: Chronic Current Visit: No (5) Seizure disorder Status: Chronic Current Visit: No (6) Type 2 diabetes mellitus Status: Chronic Current Visit: No
[2016-07-03] MEDS ORDERED: INSULIN LISPRO 100 UNIT/ML SUBCUT ONE (18:31)
[2016-07-03] MEDS: INSULIN LISPRO 100 UNIT/ML SUBCUT SCH ×2 (18:33→21:05)
[2016-07-03] MEDS: INSULIN GLARGINE 100 UNIT/ML SUBCUT SCH (21:06)
[2016-07-04] MEDS: INSULIN LISPRO 100 UNIT/ML SUBCUT SCH ×5 (03:48→21:50)
[2016-07-04 05:57] LABS: Basophils % 0.2 % (0.0-0.8); Eosinophils # 0.1 10*3/uL (0.0-0.87); Eosinophils % 0.4 % (0.00-10.9); Hematocrit 27.9 VOL% (42.0-52.0); Hemoglobin 8.7 GM/DL (14.0-18.0); Immature Granulocytes Absolute 0.13 #; Lymphocytes # 1.8 10*3/uL (1.4-4.0); Lymphocytes % 13.2 % (21.2-54.2); Mean Corpuscular HGB Conc 31.2 GM/DL (32-36); Mean Corpuscular Hemoglobin 28 PG (27-34); Mean Corpuscular Volume 89.1 FL (87-102); Mean Platelet Volume 10.5 FL (9.6-12.0); Monocytes # 0.9 10*3/uL (0.11-0.8); Monocytes % 6.8 % (1.7-12.7); NRBC # 0.05 10*3/uL; Neutrophils # 10.7 10*3/uL (1.4-7.4); Neutrophils % 78.4 % (38.7-73.9); Platelet Count 292 T/CUMM (130-400); Red Blood Count 3.13 MC/CUMM (3.8-5.5); Red Cell Distribution Width 19.9 % (9.3-17.3); White Blood Count 13.6 T/CUMM (4-12)
--- NOTE | 2016-07-04 06:41 | Family Practice Progress Note ---
Family Practice - PN: Subj Interval history: Patient states she is feeling fairly well this morning and is not having any increased left knee pain. His blood sugar got up to 500 yesterday and I stopped his Solu-Medrol and placed on sliding scale insulin. Blood sugars down to 126 this morning. He states he is breathing fine and not having any chest pain. Exam (Progress Note) - Constitutional Vitals: Period Temp Pulse Resp BP Sys/Miller Pulse Ox Last 24 Hr 97.9 F-99.4 F 66-89 18-20 161-199/65-88 94-99 Exam: Objective well-developed [place] gentleman whose able give good history. His left knee is feeling better. Cardiovascular: Heart rates regular without murmurs or gallops. Respiratory: Patient has decreased breath sounds on the left. Abdomen: Abdomen soft and nontender to palpation. Extremities: Left knee is slightly warm to the touch but there is no swelling or increased effusion. SEVERO drain is in place Results - Labs CBC & BMP: 07/04/16 05:44 07/02/16 04:59 Lab Results: I have reviewed the past 24 hour labs Assessment and Plan (1) Left knee pain Status: Acute Assessment and plan: 06/29/2016: Dr. Chua's been consulted and I believe will do an arthrocentesis. Patient is already receiving IV vancomycin after dialysis. Will check a uric acid level. I note the patient's CRP is slightly elevated but his sed rate is 112. 06/30/2016: This clinically does not appear to be septic arthritis. Culture of the arthrocentesis fluid is pending. 07/01/2016: Left knee is feeling better and certainly looks better. 08/01/2016: Patient has a positive culture of the synovial fluid. 07/03/2016: Patient underwent lavage yesterday without incident. 07/04/2016: Patient on appropriate antibiotic therapy for his MRSA septic arthritis. Current Visit: Yes Qualifiers: Chronicity: chronic Qualified Code(s): M25.562 - Pain in left knee; G89.29 - Other chronic pain (2) Chronic renal failure Status: Chronic Assessment and plan: 06/29/2016: Dr. Farhad Deng has been consulted. 06/30/2016: Patient scheduled for dialysis today. 07/01/2016: Patient had no difficulty with dialysis yesterday. 07/02/2016: Patient scheduled for dialysis today. 07/03/2016: Patient scheduled for dialysis tomorrow. 07/04/2016: Patient scheduled for dialysis today. Current Visit: Yes
--- NOTE | 2016-07-04 09:26 | Orthopedic Progress Note ---
Assessment and Plan (1) Left knee pain Status: Acute Assessment and plan: Status post I&D of left septic knee Drain removed. New dressings applied. Continue working with physical therapy on range of motion and weightbearing. Okay for weightbearing as tolerated No further orthopedic intervention needed at this time. Follow-up with Dr. Chua as outpatient in 1-2 weeks Current Visit: Yes Qualifiers: Chronicity: chronic Qualified Code(s): M25.562 - Pain in left knee; G89.29 - Other chronic pain Orthopedics - Subjective Interval history: pt s/e, son at bedside. denies complaints. Exam - Constitutional Vitals: Period Temp Pulse Resp BP Sys/Miller Pulse Ox Last 24 Hr 97.9 F-99.4 F 57-89 16-20 151-194/65-75 94-96 - Expanded Left Lower Knee exam: Present: normal inspection (Right knee: Dressing is removed. Arnaldo in place. SEVERO drain in place. Good but limited range of motion due to pain. Compartments soft. Calf supple. Full active range of motion toes and ankle. Cap refill brisk. Sensation intact.) Results - Labs CBC & BMP: 07/04/16 05:44 07/02/16 04:59 Lab Results: I have reviewed the past 24 hour labs
[2016-07-04] MEDS: NEBIVOLOL 10 MG TABLET PO SCH (10:25)
[2016-07-04] MEDS: levETIRAcetam 500 MG TABLET PO SCH (10:26)
[2016-07-04] MEDS: DOCUSATE SODIUM 100 MG CAPSULE PO SCH ×2 (10:26→21:50)
[2016-07-04] MEDS: sitaGLIPtin 25 MG TABLET PO SCH (10:27)
[2016-07-04] MEDS: PANTOPRAZOLE 40 MG TABLET PO SCH (10:28)
[2016-07-04] MEDS: FAMOTIDINE 20 MG TABLET PO SCH (10:28)
[2016-07-04] MEDS: ALLOPURINOL 100 MG TABLET PO SCH (10:28)
--- NOTE | 2016-07-04 13:25 | Nephrology Progress Note ---
Nephrology - PN: Subj Interval history: Mr. Day is seen in follow-up of his end-stage renal disease and septic knee. Drain was removed earlier today by orthopedics. He is fairly comfortable. His son asked several questions about his antibiotic therapy we explained that vancomycin is given about 3 times a week and renal failure in order to keep the drug levels therapeutic and not toxic. He also asked about his erythropoietin. We will give that today during dialysis. His chest is clear and he has no significant edema. Exam (PN)-Nephrology - Vital Signs Vital signs: Period Temp Pulse Resp BP Sys/Miller Pulse Ox Last 24 Hr 98.4 F-99.4 F 57-89 16-20 151-194/65-71 95-98 - Lab 07/04/16 05:44 07/02/16 04:59 Most recent lab results Calcium 8.1 MG/DL (8.5-10.1) L 07/02/16 04:59
[2016-07-04] MEDS ORDERED: EPOETIN ALFA 10,000 UNIT/1 ML VIAL IV ONE (14:00)
[2016-07-04] MEDS: VANCOMYCIN INJ 1,000 MG in SODIUM CHLORIDE 0.9% 250 ML IV SCH (18:27)
[2016-07-04] MEDS: cloNIDine 0.1 MG TABLET PO PRN (21:49)
[2016-07-04] MEDS: INSULIN GLARGINE 100 UNIT/ML SUBCUT SCH (21:50)
[2016-07-05] MEDS: cloNIDine 0.1 MG TABLET PO PRN (03:04)
--- NOTE | 2016-07-05 07:20 | Family Practice Progress Note ---
Family Practice - PN: Subj Interval history: Patient is doing well this morning told him he walks some yesterday with minimal pain. His blood sugars are coming down with the addition of the Lantus. He denies any chest pain or shortness of breath and states he is feeling much better overall. Exam (Progress Note) - Constitutional Vitals: Period Temp Pulse Resp BP Sys/Miller Pulse Ox Last 24 Hr 98.4 F-99.1 F 57-64 16-20 151-202/66-88 20-100 Exam: Objective well-developed gentleman whose able give good history. His left knee is feeling better and he walks some yesterday.. Cardiovascular: Heart rates regular without murmurs or gallops. Respiratory: Patient has decreased breath sounds on the left. Abdomen: Abdomen soft and nontender to palpation. Extremities: Left knee is slightly warm to the touch but there is no swelling or increased effusion. Results - Labs CBC & BMP: 07/04/16 05:44 07/02/16 04:59 Lab Results: I have reviewed the past 24 hour labs Assessment and Plan (1) Left knee pain Status: Acute Assessment and plan: 06/29/2016: Dr. Chua's been consulted and I believe will do an arthrocentesis. Patient is already receiving IV vancomycin after dialysis. Will check a uric acid level. I note the patient's CRP is slightly elevated but his sed rate is 112. 06/30/2016: This clinically does not appear to be septic arthritis. Culture of the arthrocentesis fluid is pending. 07/01/2016: Left knee is feeling better and certainly looks better. 08/01/2016: Patient has a positive culture of the synovial fluid. 07/03/2016: Patient underwent lavage yesterday without incident. 07/04/2016: Patient on appropriate antibiotic therapy for his MRSA septic arthritis. 07/05/2016: Patient septic arthritis is clinically improving. Current Visit: Yes Qualifiers: Chronicity: chronic Qualified Code(s): M25.562 - Pain in left knee; G89.29 - Other chronic pain (2) Chronic renal failure Status: Chronic Assessment and plan: 06/29/2016: Dr. Farhad Deng has been consulted. 06/30/2016: Patient scheduled for dialysis today. 07/01/2016: Patient had no difficulty with dialysis yesterday. 07/02/2016: Patient scheduled for dialysis today. 07/03/2016: Patient scheduled for dialysis tomorrow. 07/04/2016: Patient scheduled for dialysis today. 07/05/2016: Patient for dialysis tomorrow. Current Visit: Yes
[2016-07-05] MEDS: PANTOPRAZOLE 40 MG TABLET PO SCH (08:36)
[2016-07-05] MEDS: DOCUSATE SODIUM 100 MG CAPSULE PO SCH ×2 (08:36→21:30)
[2016-07-05] MEDS: levETIRAcetam 500 MG TABLET PO SCH (08:36)
[2016-07-05] MEDS: FAMOTIDINE 20 MG TABLET PO SCH (08:37)
[2016-07-05] MEDS: ALLOPURINOL 100 MG TABLET PO SCH (08:37)
[2016-07-05] MEDS: sitaGLIPtin 25 MG TABLET PO SCH (08:37)
[2016-07-05] MEDS: NEBIVOLOL 10 MG TABLET PO SCH (08:37)
[2016-07-05] MEDS: INSULIN LISPRO 100 UNIT/ML SUBCUT SCH ×4 (08:37→21:32)
--- NOTE | 2016-07-05 11:40 | Nephrology Progress Note ---
Nephrology - PN: Subj Interval history: Mr. Day is seen in follow-up of his end-stage renal disease. He is status post drainage of his left knee growing MRSA. He has been afebrile. Lab will be repeated tomorrow. He says his knee is hurting much less he has been able to bear weight with a walker. He did receive erythropoietin yesterday with his dialysis. Next dialysis should be on Wednesday. Exam (PN)-Nephrology - Vital Signs Vital signs: Period Temp Pulse Resp BP Sys/Miller Pulse Ox Last 24 Hr 97.7 F-99.1 F 57-64 16-20 157-202/67-120 20-100 - Lab 07/04/16 05:44 07/02/16 04:59 Most recent lab results Calcium 8.1 MG/DL (8.5-10.1) L 07/02/16 04:59
[2016-07-05] MEDS ORDERED: INSULIN GLARGINE 100 UNIT/ML SUBCUT SCH (21:00)
[2016-07-06 06:04] LABS: Basophils # 0.1 10*3/uL (0.0-0.2); Basophils % 0.5 % (0.0-0.8); Eosinophils # 1.5 10*3/uL (0.0-0.87); Eosinophils % 14.3 % (0.00-10.9); Hematocrit 26.3 VOL% (42.0-52.0); Hemoglobin 8.3 GM/DL (14.0-18.0); Immature Granulocytes % 0.7 %; Immature Granulocytes Absolute 0.07 #; Lymphocytes # 1.5 10*3/uL (1.4-4.0); Lymphocytes % 13.5 % (21.2-54.2); Mean Corpuscular HGB Conc 31.6 GM/DL (32-36); Mean Corpuscular Hemoglobin 28 PG (27-34); Mean Corpuscular Volume 88.9 FL (87-102); Mean Platelet Volume 10.7 FL (9.6-12.0); Monocytes # 0.6 10*3/uL (0.11-0.8); Monocytes % 5.6 % (1.7-12.7); Neutrophils % 65.4 % (38.7-73.9); Platelet Count 257 T/CUMM (130-400); Red Blood Count 2.96 MC/CUMM (3.8-5.5); Red Cell Distribution Width 20.6 % (9.3-17.3); White Blood Count 10.7 T/CUMM (4-12)
[2016-07-06 06:35] LABS: Elliptocytes Few; Eosinophils 13 % (0-10); Hypochromasia 1+; Lymphocytes 12 % (20-55); Platelet Estimate Adequate; Segmented Neutrophils 67 % (50-85); Total Cells Counted 100
[2016-07-06 06:46] LABS: Calcium 7.6 MG/DL (8.5-10.1); Potassium 4.9 MMOL/L (3.5-5.1)
--- NOTE | 2016-07-06 07:39 | Discharge Summary ---
Hospital Course - Hospital Course Hospital Course: Patient is a 66-year-old [place] gentleman who presented the office with increasing left knee pain. Patient was found to have an effusion and had a history of recent septic arthritis of this knee and treated in [place]. It was felt that he may have recurrence of septic arthritis and he was admitted to the hospital. He was seen in consultation by Dr. Joseph Chua and underwent arthrocentesis with a fairly benign appearing synovial fluid analysis. Cultures however revealed MRSA. Patient was taken to the operating room and had his knee washed out by Dr. Chua. Patient has been on vancomycin since his return home from [facility]. He is receiving this at the time of each dialysis. The MRSA was certainly sensitive to this antibiotic and it will be continued. Patient's now weightbearing and feeling much better and is anxious to go home. Diagnosis - Discharge Diagnosis (1) Left knee pain Status: Acute (2) Chronic renal failure Status: Chronic (3) Septic arthritis of knee, left Status: Acute Discharge Plan - Discharge Data Disposition: Disch To Home/Self Care Condition at Discharge: Stable Discharge Diet: advance to your usual diet Activity: as per physical therapy Hygiene: no restrictions Weight Bearing at Discharge: weight bear as tolerated Contact your physician if you experience:: fever over 101 - Discharge Medications New Acetaminophen Tab [Tylenol Tab] 650 mg PO Q6H PRN #0 tablet PRN Reason: Fever > 100.4 Or Headache HYDROcodone/ACETAMIN 5-325 [Morris 5-325] 1 tablet PO Q4H PRN #60 tablet PRN Reason: Pain Moderate (4-7) NIFEdipine XL TAB [Procardia Xl] 60 mg PO DAILY #30 tablet Vancomycin Inj 1,000 mg IV TUTHSA vial sitaGLIPtin [Januvia] 25 mg PO DAILY #30 tablet Insulin Degludec [Tresiba Flextouch U-100] 12 unit SQ QPM #3 insuln.pen Continue Allopurinol 100 mg PO DAILY Famotidine 20 mg PO DAILY levETIRAcetam [Levetiracetam] 500 mg PO DAILY hydrALAZINE TAB [Apresoline Tab] 100 mg PO TID #90 tablet Alum/Mag/Simeth Max Str Liquid [Mylanta Max Strength Liquid] 30 ml PO Q6H PRN #0 udcup PRN Reason: Indigestion guaiFENesin ER TAB [Mucinex] 600 mg PO BID tablet Nebivolol [Bystolic] 10 mg PO DAILY #30 tablet cloNIDine TAB [Catapres Tab] 0.2 mg PO TID #90 tablet Discontinued Amlodipine Besylate 10 mg PO BEDTIME Acetaminophen Tab [Tylenol Tab] 650 mg PO Q6H PRN #0 tablet PRN Reason: Fever > 100.4 Or Headache - Follow Up or Referral Follow Up: Jerome Willingham MD [Physician] - 1 Month - Forms/Instructions Exam - Constitutional Vitals: Period Temp Pulse Resp BP Sys/Miller Pulse Ox Last 24 Hr 97.7 F-99.0 F 53-91 16-20 148-195/58-120 99-100 Exam: Objective well-developed [place] gentleman whose able give good history. His left knee is feeling better and he walks again yesterday without incident. He states it feels much better and he is ready to go home. Cardiovascular: Heart rates regular without murmurs or gallops. Respiratory: Patient has decreased breath sounds on the left. Abdomen: Abdomen soft and nontender to palpation. Extremities: Left knee is slightly warm to the touch but there is no swelling or increased effusion. Discharge Results Procedures and tests throughout hospitalization: Pending Orders 06/29/16 16:30 Antibody Identification Stat Red Blood Cells Leuko Red Stat Type and Screen Stat Labs on day of discharge: Labs from last 24 hours 07/06/16 07/06/16 07/06/16 06:36 04:53 04:53 WBC 10.7 RBC 2.96 L Hgb 8.3 L Hct 26.3 L MCV 88.9 MCH 28 MCHC 31.6 L RDW 20.6 H Plt Count 257 MPV 10.7 Neut % (Auto) 65.4 Lymph % (Auto) 13.5 L [place] % (Auto) 5.6 Eos % (Auto) 14.3 H Baso % (Auto) 0.5 Neut # (Auto) 7.0 Lymph # (Auto) 1.5 [place] # (Auto) 0.6 Eos # (Auto) 1.5 H Baso # (Auto) 0.1 Total Counted 100 Immature Gran % 0.7 Nucleated RBC % 0.0 Immature Gran # 0.07 Segmented Neutrophils 67 Lymphocytes 12 L Monocytes 7 Eosinophils 13 H Basophils 1.0 H Nucleated RBCs # 0.00 Platelet Estimate Adequate Hypochromasia 1+ Elliptocytes Few Morphology Comment Sodium 136 Potassium 4.9 Chloride 99 Carbon Dioxide 24 Anion Gap 17.9 H BUN 73 H Creatinine 5.40 H GFR Calculation 10 BUN/Creatinine Ratio 13.00 Glucose 177 H POC Glucose 198 H Calculated Osmolality 297.0 Calcium 7.6 L 07/05/16 07/05/16 07/05/16 20:26 16:13 12:16 WBC RBC Hgb Hct MCV MCH MCHC RDW Plt Count MPV Neut % (Auto) Lymph % (Auto) [place] % (Auto) Eos % (Auto) Baso % (Auto) Neut # (Auto) Lymph # (Auto) [place] # (Auto) Eos # (Auto) Baso # (Auto) Total Counted Immature Gran % Nucleated RBC % Immature Gran # Segmented Neutrophils Lymphocytes Monocytes Eosinophils Basophils Nucleated RBCs # Platelet Estimate Hypochromasia Elliptocytes Morphology Comment Sodium Potassium Chloride Carbon Dioxide Anion Gap BUN Creatinine GFR Calculation BUN/Creatinine Ratio Glucose POC Glucose 300 H 221 H 156 H Calculated Osmolality Calcium 07/05/16 08:05 WBC RBC Hgb Hct MCV MCH MCHC RDW Plt Count MPV Neut % (Auto) Lymph % (Auto) [place] % (Auto) Eos % (Auto) Baso % (Auto) Neut # (Auto) Lymph # (Auto) [place] # (Auto) Eos # (Auto) Baso # (Auto) Total Counted Immature Gran % Nucleated RBC % Immature Gran # Segmented Neutrophils Lymphocytes Monocytes Eosinophils Basophils Nucleated RBCs # Platelet Estimate Hypochromasia Elliptocytes Morphology Comment Sodium Potassium Chloride Carbon Dioxide Anion Gap BUN Creatinine GFR Calculation BUN/Creatinine Ratio Glucose POC Glucose 231 H Calculated Osmolality Calcium CBC results are acceptable. DS: Provider Date of admission: 06/29/16 15:01 Primary care physician: . No PCP Attending physician on admission: Jerome Willingham MD Consults: 06/29/16 13:57 Consult to Case Mgmt/Social Srvs [CONS] Routine Reason for Case Mgmt/Social Srvs: Discharge Planning Consult to Physician [CONS] Routine Comment: Consulting Provider: Joseph Chua 06/29/16 13:59 Consult to Physician [CONS] Routine Comment: Consulting Provider: Farhad Deng Consult to Specialist Group: Nephrology Person Notified: CALIN Date Notified: 06/30/16 Time Notified: 10:25 06/29/16 16:30 Consult to Pharmacy [CONS] Routine Reason for Pharmacy Consult: Adjust Meds Renal Funct 06/30/16 06:52 Consult to Physician [CONS] Routine Comment: Consulting Provider: [facility] 07/04/16 10:44 Consult to Physical Therapy [CONS] Routine Reason for Physical Therapy: Evaluate and Treat Discharging clinician: Jerome Willingham MD Expected date of discharge: 07/06/16
[2016-07-06] MEDS: PANTOPRAZOLE 40 MG TABLET PO SCH (08:20)
[2016-07-06] MEDS: NEBIVOLOL 10 MG TABLET PO SCH (08:20)
[2016-07-06] MEDS: sitaGLIPtin 25 MG TABLET PO SCH (08:20)
[2016-07-06] MEDS: ALLOPURINOL 100 MG TABLET PO SCH (08:20)
[2016-07-06] MEDS: INSULIN LISPRO 100 UNIT/ML SUBCUT SCH ×2 (08:20→11:40)
[2016-07-06] MEDS: levETIRAcetam 500 MG TABLET PO SCH (08:20)
[2016-07-06] MEDS: FAMOTIDINE 20 MG TABLET PO SCH (08:20)
[2016-07-06] MEDS: DOCUSATE SODIUM 100 MG CAPSULE PO SCH (08:20)
--- NOTE | 2016-07-06 09:04 | Orthopedic Progress Note ---
Assessment and Plan (1) Left knee pain Status: Acute Assessment and plan: Okay to d/c home today WBAT, full ROM Ok to leave incision open to air Ok to shower, no tub soaks f/u 10-14 days Current Visit: Yes Qualifiers: Chronicity: chronic Qualified Code(s): M25.562 - Pain in left knee; G89.29 - Other chronic pain Orthopedics - Subjective Interval history: Patient states he is feeling better, much less pain in the knee. On exam he has a slight effusion, his incision is dry. Exam - Constitutional Vitals: Period Temp Pulse Resp BP Sys/Miller Pulse Ox Last 24 Hr 98.1 F-99.2 F 53-91 16-20 148-198/58-83 96-100 Results - Labs CBC & BMP: 07/06/16 04:53 07/06/16 04:53 Specialty Discharge - Follow Up or Referrals Follow up with: Jerome Willingham MD [Physician] - 1 Month Joseph Chua MD [Physician] - (10-14 days) - Speciality Discharge Instructions Orthopedic Instructions: WBAT, full ROM. Ok to leave incision open to air. Ok to shower, no tub soaks. f/u 10-14 days
--- NOTE | 2016-07-06 11:25 | Nephrology Progress Note ---
Nephrology - PN: Subj Interval history: He is feeling better overall today. No shortness of breath. Left knee pain has improved Exam (PN)-Nephrology - Vital Signs Vital signs: Period Temp Pulse Resp BP Sys/Miller Pulse Ox Last 24 Hr 98.1 F-99.2 F 53-91 16-20 148-198/58-83 96-100 Exam: ENT: Normal Cardiovascular: Regular rate and rhythm. No murmur rub or gallop Lungs: Clear Extremities: No edema - Lab 07/06/16 04:53 07/06/16 04:53 Most recent lab results Calcium 7.6 MG/DL (8.5-10.1) L 07/06/16 04:53 Assessment and Plan (1) ESRD (end stage renal disease) Status: Chronic Assessment and plan: 66-year-old man admitted with: * Septic left knee. Status post debridement. Continue vancomycin every HD through 07/23/2016 * ESRD. Dialysis TTS * Hypertension. Improved with nifedipine * Pleural effusions. These are recurrent. Dry weight will be decreased as tolerated * Diabetes mellitus Current Visit: No (2) Left knee pain Status: Acute Current Visit: Yes Qualifiers: Chronicity: chronic Qualified Code(s): M25.562 - Pain in left knee; G89.29 - Other chronic pain (3) Bilateral pleural effusion Status: Chronic Current Visit: No (4) Chronic hypertension Status: Chronic Current Visit: No (5) Seizure disorder Status: Chronic Current Visit: No (6) Type 2 diabetes mellitus Status: Chronic Current Visit: No Specialty Discharge - Follow Up or Referrals Follow up with: Jerome Willingham MD [Physician] - 1 Month (Wednesday, August 10, 2016 at 01:30pm.) Joseph Chua MD [Physician] - (July 16, 2016 at 02:30 PM)
[2016-07-06 11:38] VITALS: BP 183/80
== END 2016-07-06 12:00 | disposition home or self-care (01) | DRG 485 ==
LOC: N.TELES 15:01
PROVIDERS: ADMIT Family Medicine; ATTEND Family Medicine

== ENCOUNTER 2017-11-20 19:54 | Observation (INO) ==
[2017-11-20 20:42] LABS: Basophils # 0.1 10*3/uL (0.0-0.2); Basophils % 0.6 % (0.0-0.8); Eosinophils # 0.4 10*3/uL (0.0-0.87); Eosinophils % 4.1 % (0.00-10.9); Hematocrit 39.2 VOL% (42.0-52.0); Hemoglobin 12.8 GM/DL (14.0-18.0); Immature Granulocytes % 0.3 %; Immature Granulocytes Absolute 0.03 #; Lymphocytes # 1.3 10*3/uL (1.4-4.0); Lymphocytes % 12.2 % (21.2-54.2); Mean Corpuscular HGB Conc 32.7 GM/DL (32-36); Mean Corpuscular Hemoglobin 32 PG (27-34); Mean Corpuscular Volume 97.8 FL (87-102); Monocytes # 0.7 10*3/uL (0.11-0.8); Monocytes % 6.4 % (1.7-12.7); Neutrophils # 8.2 10*3/uL (1.4-7.4); Neutrophils % 76.4 % (38.7-73.9); Platelet Count 202 T/CUMM (130-400); Red Blood Count 4.01 MC/CUMM (3.8-5.5); Red Cell Distribution Width 14.9 % (9.3-17.3); White Blood Count 10.7 T/CUMM (4-12)
[2017-11-20 21:05] LABS: Albumin 3.5 G/DL (3.4-5.0); Bilirubin,Total 0.4 MG/DL (0.2-1.0); Calcium 8.7 MG/DL (8.5-10.1); Potassium 4.5 MMOL/L (3.5-5.1); Total Protein 9.1 G/DL (6.4-8.3)
[2017-11-20] MEDS ORDERED: ASPIRIN CHEW 81 MG TABLET PO STA (23:15)
[2017-11-20] MEDS ORDERED: LABETALOL 20 MG/4 ML SYRINGE IV STA (23:18)
[2017-11-20] MEDS ORDERED: ASPIRIN 325 MG TABLET ONE (23:19)
[2017-11-20] MEDS ORDERED: LABETALOL 100 MG/20 ML VIAL IV ONE (23:20)
[2017-11-20] MEDS ORDERED: ACETAMINOPHEN 325 MG TABLET PO PRN (23:45)
[2017-11-20] MEDS ORDERED: DOCUSATE SODIUM 100 MG CAPSULE PO PRN (23:45)
[2017-11-20] MEDS ORDERED: GLUCAGON 1 MG VIAL IM PRN (23:45)
[2017-11-20] MEDS ORDERED: ONDANSETRON 4 MG/2 ML VIAL IV PRN (23:45)
[2017-11-20] MEDS ORDERED: DEXTROSE 50% 25 GM/50 ML VIAL IV PRN (23:45)
[2017-11-20] MEDS ORDERED: traZODone 50 MG TABLET PO PRN (23:45)
[2017-11-21] MEDS ORDERED: CLOPIDOGREL 300 MG TABLET PO STA (00:24)
[2017-11-21] MEDS ORDERED: cloNIDine 0.1 MG TABLET ONE (01:00)
[2017-11-21 04:13] LABS: Basophils # 0.1 10*3/uL (0.0-0.2); Basophils % 0.5 % (0.0-0.8); Eosinophils # 0.3 10*3/uL (0.0-0.87); Eosinophils % 2.7 % (0.00-10.9); Hematocrit 33.7 VOL% (42.0-52.0); Hemoglobin 11.1 GM/DL (14.0-18.0); Immature Granulocytes % 0.3 %; Immature Granulocytes Absolute 0.03 #; Lymphocytes # 2.1 10*3/uL (1.4-4.0); Lymphocytes % 21.5 % (21.2-54.2); Mean Corpuscular HGB Conc 32.9 GM/DL (32-36); Mean Corpuscular Hemoglobin 32 PG (27-34); Monocytes # 0.8 10*3/uL (0.11-0.8); Monocytes % 8.4 % (1.7-12.7); Neutrophils # 6.6 10*3/uL (1.4-7.4); Neutrophils % 66.6 % (38.7-73.9); Platelet Count 183 T/CUMM (130-400); Red Blood Count 3.51 MC/CUMM (3.8-5.5); Red Cell Distribution Width 15.1 % (9.3-17.3)
[2017-11-21 04:39] LABS: Calcium 8.4 MG/DL (8.5-10.1); Osmolality,Calculated 286.5 MOS/KG (273-304); Potassium 4.6 MMOL/L (3.5-5.1)
[2017-11-21] MEDS: INSULIN LISPRO 100 UNIT/ML SUBCUT SCH ×4 (07:47→21:12)
[2017-11-21] MEDS: PANTOPRAZOLE 40 MG TABLET PO SCH (09:23)
[2017-11-21] MEDS: glipiZIDE 5 MG TABLET PO SCH (13:24)
[2017-11-21] MEDS: NIFEdipine 10 MG CAPSULE PO SCH (15:55)
[2017-11-21] MEDS: levETIRAcetam 500 MG TABLET PO SCH (15:55)
[2017-11-21] MEDS: MULTIVITAMIN (BEROCCA) TABLET PO SCH (15:55)
[2017-11-21] MEDS: ALLOPURINOL 100 MG TABLET PO SCH (15:56)
[2017-11-21] MEDS: hydrALAZINE 25 MG TABLET PO SCH (20:33)
[2017-11-21] MEDS: ISOSORBIDE DINITRATE 20 MG TABLET PO SCH (20:34)
[2017-11-22 03:18] LABS: Basophils % 0.4 % (0.0-0.8); Eosinophils # 0.6 10*3/uL (0.0-0.87); Eosinophils % 6.5 % (0.00-10.9); Hematocrit 32.8 VOL% (42.0-52.0); Hemoglobin 10.8 GM/DL (14.0-18.0); Immature Granulocytes % 0.2 %; Immature Granulocytes Absolute 0.02 #; Lymphocytes # 1.7 10*3/uL (1.4-4.0); Lymphocytes % 18.7 % (21.2-54.2); Mean Corpuscular HGB Conc 32.9 GM/DL (32-36); Mean Corpuscular Hemoglobin 31 PG (27-34); Mean Corpuscular Volume 94.5 FL (87-102); Mean Platelet Volume 11.1 FL (9.6-12.0); Monocytes # 0.7 10*3/uL (0.11-0.8); Monocytes % 7.7 % (1.7-12.7); Neutrophils % 66.5 % (38.7-73.9); Platelet Count 195 T/CUMM (130-400); Red Blood Count 3.47 MC/CUMM (3.8-5.5); Red Cell Distribution Width 15.2 % (9.3-17.3)
[2017-11-22 03:31] LABS: Albumin 2.9 G/DL (3.4-5.0); Bilirubin,Total 0.4 MG/DL (0.2-1.0); Calcium 8.4 MG/DL (8.5-10.1); Osmolality,Calculated 288.1 MOS/KG (273-304); Potassium 4.6 MMOL/L (3.5-5.1); Total Protein 7.7 G/DL (6.4-8.3)
[2017-11-22 03:54] LABS: B-Type Natriuretic Peptide 155 PG/ML (2-100)
[2017-11-22 03:55] LABS: Vitamin B12 1184 PG/ML (211-911)
[2017-11-22] MEDS: INSULIN LISPRO 100 UNIT/ML SUBCUT SCH ×2 (08:00→13:41)
[2017-11-22] MEDS ORDERED: LEVOFLOXACIN INJ 250 MG in PREMIX 1 EACH IV SCH (08:30)
[2017-11-22] MEDS: hydrALAZINE 25 MG TABLET PO SCH ×2 (09:42→15:02)
[2017-11-22] MEDS: PANTOPRAZOLE 40 MG TABLET PO SCH (09:43)
[2017-11-22] MEDS: ISOSORBIDE DINITRATE 20 MG TABLET PO SCH ×2 (09:43→15:03)
[2017-11-22 11:49] VITALS: BP 133/63
[2017-11-22] MEDS: glipiZIDE 5 MG TABLET PO SCH (15:02)
[2017-11-22] MEDS: MULTIVITAMIN (BEROCCA) TABLET PO SCH (15:03)
[2017-11-22] MEDS: levETIRAcetam 500 MG TABLET PO SCH (15:03)
[2017-11-22] MEDS: NIFEdipine 10 MG CAPSULE PO SCH (15:03)
[2017-11-22] MEDS: ALLOPURINOL 100 MG TABLET PO SCH (15:03)
== END 2017-11-22 15:39 | disposition home or self-care (01) ==
LOC: N.EDINP 19:54 → N.ED 19:54 → N.TELES 11-21 01:44
PROVIDERS: ADMIT Family Medicine; ATTEND Family Medicine